=== PATIENT | female | born 1995 | race Caucasian/White ===

== ENCOUNTER 2021-07-20 22:58 | Emergency (ER) | payer SELFPAY ==
[~2021-07-20] VITALS: Ht 157.5 cm; Wt 59.0 kg
[2021-07-21] MEDS ORDERED: NAPR-681 PO (00:32)
[2021-07-21 00:35] VITALS: BP 115/63
== END 2021-07-21 00:49 | disposition home or self-care (01) ==
LOC: ER 23:49
DX: S06.0X0A Concussion without loss of consciousness, initial encounter (principal); H53.19 Other subjective visual disturbances; R51.9 Headache, unspecified; X58.XXXA Exposure to other specified factors, initial encounter; Y93.89 Activity, other specified; Y92.89 Other specified places as the place of occurrence of the external cause; Y99.8 Other external cause status
CPT/HCPCS: 99282

== ENCOUNTER 2022-03-18 19:37 | Emergency (ER) | payer OTHER ==
[~2022-03-18] VITALS: Ht 157.5 cm; Wt 64.0 kg
[~2022-03-18 19:37] MED LIST: NAPR-681 PO
[2022-03-18 21:58] VITALS: BP 111/64
== END 2022-03-18 22:06 | disposition home or self-care (01) ==
LOC: ER 19:37
DX: S60.812A Abrasion of left wrist, initial encounter (principal); S60.811A Abrasion of right wrist, initial encounter; X58.XXXA Exposure to other specified factors, initial encounter; Y93.89 Activity, other specified; Y92.89 Other specified places as the place of occurrence of the external cause; Y99.8 Other external cause status
CPT/HCPCS: 99283